=== PATIENT | female | born 1995 | race Asian ===

== ENCOUNTER 2021-09-11 19:05 | Emergency (ER) | payer BC ==
[~2021-09-11] VITALS: Ht 162.6 cm; Wt 72.6 kg
[2021-09-11 19:20] VITALS: BP 108/65
[2021-09-11] MEDS ORDERED: ACETAMINOPHEN ES 500 MG TABLET PO ONE (19:30)
[2021-09-11] MEDS ORDERED: ACETAMINOPHEN ES 500 MG TABLET ONE (19:58)
[2021-09-11] MEDS ORDERED: ACET-2605 PO (20:47)
== END 2021-09-11 21:21 | disposition home or self-care (01) ==
LOC: ER 19:07
DX: S09.8XXA Other specified injuries of head, initial encounter (principal); M79.642 Pain in left hand; M25.551 Pain in right hip; Z98.890 Other specified postprocedural states; Z79.899 Other long term (current) drug therapy; V49.49XA Driver injured in collision with other motor vehicles in traffic accident, initial encounter; Y93.89 Activity, other specified; Y92.488 Other paved roadways as the place of occurrence of the external cause; Y99.8 Other external cause status
CPT/HCPCS: 73130-TC; 73502